=== PATIENT | male | born 1995 | race Caucasian/White ===

== ENCOUNTER 2017-12-21 08:38 | Emergency (ER) | payer OTHER ==
[~2017-12-21] VITALS: Ht 185.4 cm; Wt 67.1 kg
[2017-12-21 08:42] VITALS: BP 134/86; Ht 185.4 cm; Wt 67.1 kg
== END 2017-12-21 11:26 | disposition home or self-care (01) ==
LOC: ED 08:38
DX: R10.9 Unspecified abdominal pain (principal); R31.9 Hematuria, unspecified
CPT/HCPCS: Q0092